=== PATIENT | female | born 1950 | race American Indian/Alaskan Native ===

== ENCOUNTER 2017-05-29 11:25 | Outpatient (CLI) | payer MEDICARE ==
--- NOTE | 2017-05-29 13:17 | Mammography Report ---
BILATERAL DIGITAL SCREENING MAMMOGRAM WITH CAD: 05/29/17 11:25:00 CLINICAL: Routine screening. COMPARISON:05/16/16 FINDINGS: The breasts are heterogeneously dense, which may obscures small masses. A group of left posterior slightly outer calcifications require additional imaging. They are not clearly identified on previous mammograms and are blurred by motion on the current MLO view. No mass or architectural distortion.The right breast is negative. IMPRESSION: Left calcifications requiring further workup. BI-RADS CATEGORY: 0 -- Additional Imaging Evaluation Required RECOMMENDATION: Recalled for left ML and spot magnification CC and ML views. ACR BI-RADS MAMMOGRAPHIC CODES: 0 = Needs additional imaging evaluation; 1 = Negative; 2 = Benign; 3 = Probably benign; 4 = Suspicious; 5 = Malignant; 6 = Known biopsy-proven malignancy COMMENT: 1. Dense breast tissue, i.e., adenosis, fibrocystic changes, etc., may obscure an underlying neoplasm. 2. Approximately 10% of cancers are not detected with mammography. 3. A negative mammography report should not delay biopsy if a clinically suspicious mass is present. COMMENT: Patient follow-up letters are generated via our [employer] application.
== END 2017-05-29 11:26 | disposition home or self-care (01) ==
LOC: MAMMO 11:25
PROVIDERS: ATTEND Family Medicine
DX: Z12.31 Encounter for screening mammogram for malignant neoplasm of breast (principal)
CPT/HCPCS: 77067; G0202

== ENCOUNTER 2017-06-12 13:21 | Outpatient (CLI) | payer MEDICARE ==
--- NOTE | 2017-06-12 14:05 | Mammography Report ---
Spot compression magnification of calcifications posterior left breast: Compared to 05/29/17 and 05/16/16 and 04/12/15. Findings: There is cluster of calcifications noted which appear indeterminate and probably benign. No mass is seen. Impression: Indeterminate calcifications. 6 month followup recommended. BI-RADS CATEGORY: 3 = Probably benign ACR BI-RADS MAMMOGRAPHIC CODES: 0 = Needs additional imaging evaluation; 1 = Negative; 2 = Benign; 3 = Probably benign; 4 = Suspicious; 5 = Malignant; 6 = Known biopsy-proven malignancy COMMENT: 1. Dense breast tissue, i.e., adenosis, fibrocystic changes, etc., may obscure an underlying neoplasm. 2. Approximately 10% of cancers are not detected with mammography. 3. A negative mammography report should not delay biopsy
== END 2017-06-12 13:22 | disposition home or self-care (01) ==
LOC: MAMMO 13:21
PROVIDERS: ATTEND Nurse Practitioner Family
DX: R92.1 Mammographic calcification found on diagnostic imaging of breast (principal); R92.8 Other abnormal and inconclusive findings on diagnostic imaging of breast
CPT/HCPCS: G0206-LT

== ENCOUNTER 2017-12-04 09:17 | Outpatient (CLI) | payer MEDICARE ==
--- NOTE | 2017-12-04 14:56 | Mammography Report ---
BONE DEXA:12/04/17 09:17:00 CLINICAL: Postmenopausal. COMPARISON: 09/14/15 TECHNIQUE: Two site bone DEXA performed on an Hologic scanner. FINDINGS: The average BMD of the lumbar spine L1-L4 is 1.049g/cm squared with a T-score of -0.9 and a Z-score of +1.3. This compares to 0.983g/cm squared on the last exam and represents a +6.7% change from the previous baseline. The average BMD of the left hip is 0.884g/cm squared with a T-score of -0.9 and a Z-score of +0.1. This compares to 0.852g/cm squared on the last exam and represents a +3.8% change from the previous baseline. The left femoral neck BMD is 0.727g/cm squared with a T score -1.6 and a Z score of -0.2. IMPRESSION: 1. WHO classification: Normal with average fracture risk based on lumbar measurements. 2. WHO classification: Osteopenia with increased fracture risk based on left femoral neck measurements. 3. Moderate improvement in both spine and left hip BMD compared to the last exam. RECOMMENDATION: Clinical correlation and routine screening. DEFINITIONS: BMD = Bone Mineral Density T-score = BMD related to mean peak bone mass of young adult (mean expressed in Standard Deviation) Z-score = Age matched BMD expressed in SD World Health Organization (WHO) Diagnostic Criteria Normal T-score > -1 SD Osteopenia T-score between -1 and -2.4 SD Osteoporosis T-score -2.5 SD or below NOTE: BMD is not the only risk factor for fracture; also consider factors such as the patient's age, risk of falling, previous osteoporotic fracture, family history of osteoporotic fractures, current smoker, and low body weight. Z-scores are not calculated if >80 years of age.
== END 2017-12-04 09:18 | disposition home or self-care (01) ==
LOC: SPVWC 09:17
PROVIDERS: ATTEND Family Medicine
DX: M85.88 Other specified disorders of bone density and structure, other site (principal); Z78.0 Asymptomatic menopausal state
CPT/HCPCS: 77080

== ENCOUNTER 2017-12-25 10:53 | Outpatient (CLI) | payer MEDICARE ==
--- NOTE | 2017-12-25 11:34 | Mammography Report ---
Left mammogram: Magnification CC and lateral views again demonstrate an aggregate of pleomorphic microcalcifications. There has been no significant change since May 2017 but there probably has been moderate progression since 2016. No associated parenchymal changes. Impression: Suspicious left microcalcifications. The patient has been informed of the recommendation. Recommendation: Biopsy. BI-RADS CATEGORY: 4 = Suspicious ACR BI-RADS MAMMOGRAPHIC CODES: 0 = Needs additional imaging evaluation; 1 = Negative; 2 = Benign; 3 = Probably benign; 4 = Suspicious; 5 = Malignant; 6 = Known biopsy-proven malignancy COMMENT: 1. Dense breast tissue, i.e., adenosis, fibrocystic changes, etc., may obscure an underlying neoplasm. 2. Approximately 10% of cancers are not detected with mammography. 3. A negative mammography report should not delay biopsy if a clinically suspicious mass is present.
== END 2017-12-25 10:54 | disposition home or self-care (01) ==
LOC: MAMMO 10:53
PROVIDERS: ATTEND Physician Assistant Medical
DX: R92.8 Other abnormal and inconclusive findings on diagnostic imaging of breast (principal); R92.1 Mammographic calcification found on diagnostic imaging of breast

== ENCOUNTER 2018-10-07 13:18 | Outpatient (CLI) | payer MEDICARE ==
--- NOTE | 2018-10-07 15:22 | Mammography Report ---
RIGHT DIGITAL DIAGNOSTIC MAMMOGRAM with CAD and RIGHT BREAST ULTRASOUND: 10/07/18 13:18:00 CLINICAL: Recent MRI demonstrated suspicious right nipple enhancement and right retroareolar non-Mass enhancement. However, the study was terminated prematurely and there was considerable motion on that exam. COMPARISON:09/04/18 MRI FINDINGS: The breast is heterogeneous events, which may obscure small masses. A calcified retroareolar benign fibroadenoma in a calcified benign fibroadenoma at 6 o'clock approximately 7 cm from the nipple. No other mass, architectural distortion or suspicious calcifications. Ultrasound of the right breast (including all four quadrants and the retroareolar area) was performed and demonstrated a heavily calcified mass at 6 o'clock 3 cm from the nipple measuring 8 x 5 x 7 mm. It correlates with the benign fibroadenoma at 6 o'clock on the mammogram. A retroareolar mass contains benign calcifications and measures 1.9 x 0.8 x 1.4 cm. It correlates with the calcified fibroadenoma in the mammogram and with the larger of 2 retroareolar masses on the recent MRI. A solid oval hypoechoic mass with minimal calcifications at 10 o'clock 1 cm from the nipple correlates with the nonenhancing smaller retroareolar mass on MRI. It measures 1.1 x 0.9 x 0.5 cm. No other mass. No duct ectasia or suspicious findings. IMPRESSION: 3 benign fibroadenomas and no suspicious finding. BI-RADS CATEGORY: 2 - - Benign 6 RECOMMENDATION: Routine mammographic screening. I also recommend a followup MRI to reevaluate the abnormal enhancement of the right breast on the recent MRI. ACR BI-RADS MAMMOGRAPHIC CODES: 0 = Needs additional imaging evaluation; 1 = Negative; 2 = Benign; 3 = Probably benign; 4 = Suspicious; 5 = Malignant; 6 = Known biopsy-proven malignancy COMMENT: 1. Dense breast tissue, i.e., adenosis, fibrocystic changes, etc., may obscure an underlying neoplasm. 2. Approximately 10% of cancers are not detected with mammography. 3. A negative mammography report should not delay biopsy if a clinically suspicious mass is present. COMMENT: Patient follow-up letters are generated by our [employer] application.
== END 2018-10-07 13:19 | disposition home or self-care (01) ==
LOC: SPVWC 13:18
PROVIDERS: ATTEND Surgery
DX: D24.1 Benign neoplasm of right breast (principal)

== ENCOUNTER 2019-08-31 09:30 | Outpatient (CLI) | payer MEDICARE ==
--- NOTE | 2019-09-02 11:14 | Magnetic Resonance Report ---
BILATERAL BREAST MR WITHOUT AND WITH GADOLINIUM INDICATION: Follow-up right breast cancer after chemotherapy. COMPARISONS: 09/04/2018 TECHNIQUE: Axial 1.0 mm T1 without, axial high-resolution 2.0 mm T2 and axial 1.0 mm dynamic vibrant high-resolution postcontrast T1 fat saturation sequences on a 1.5 Ita magnet. The examination was p erformed with an 8-channel dedicated [place] breast coil. Post-processing with CAD and subtraction was performed on an [employer] workstation. 18.0 cc of MultiHance was injected without incident for the c ontrast portion of the exam. Consent was obtained prior to the administration of the contrast. FINDINGS: RIGHT BREAST: Minimal background enhancement. No suspicious mass or suspicious enhancement. 2 nonenha ncing retroareolar masses are consistent with benign fibroadenomas and are unchanged compared to the last exam. No suspicious lymph nodes. LEFT BREAST: Minimal background parenchymal enhancement. No mass or suspicious enhancement. No suspic ious lymph nodes. IMPRESSION: 1. Positive response to chemotherapy with complete resolution of the previously identified nonmass en hancement of the right nipple-areola complex and the retroareolar right breast. 2. No residual lesions and no new lesions. 3. Negative left breast. 4. No suspicious lymph nodes. BI-RADS Category 6: Known cancer Signer Name: Song Currie MD Signed: 09/02/2019 11:10 AM Workstation Name: [id number]
--- NOTE | 2019-09-02 11:22 | Ultrasound Report ---
LIMITED RIGHT BREAST ULTRASOUND HISTORY: Right breast cancer follow up chemotherapy. COMPARISON: A same-day MRI and 07/29/2019 and 08/17/2019 mammograms. FINDINGS: Focused sonographic evaluation upon the upper right breast from 9:00 to 3:00 demonstrates a 5 mm cyst at 10:00 3 cm from the nipple and a benign cyst at 12:00 2 cm from the nipple measuring 7 mm. Solid 1.8 cm mass with a biopsy clip at 10:00 retroareolar and a solid 1.3 cm mass at 10:00 2 cm from the nipple which correlate with nonenhancing masses on MRI. IMPRESSION: Benign cysts and benign solid masses. No suspicious findings. BI-RADS Category 6: Known Cancer Signer Name: Song Currie MD Signed: 09/02/2019 11:17 AM Workstation Name: [id number]
== END 2019-08-31 09:31 | disposition home or self-care (01) ==
LOC: SPVWC 09:30
PROVIDERS: ATTEND Surgery
DX: N60.01 Solitary cyst of right breast (principal); R92.8 Other abnormal and inconclusive findings on diagnostic imaging of breast; Z80.3 Family history of malignant neoplasm of breast
CPT/HCPCS: 76642; A9577; C8908; 77049